=== PATIENT | male | born 1980 | race Native Hawaiian/Other Pacific Islander ===

== ENCOUNTER 2016-04-05 22:33 | Emergency (ER) | payer OTHER ==
[~2016-04-05] VITALS: Ht 175.3 cm; Wt 138.3 kg
[2016-04-06 04:25] VITALS: BP 150/100
== END 2016-04-06 04:45 | disposition left against medical advice (07) ==
LOC: ER 22:51
DX: M54.9 Dorsalgia, unspecified (principal); Z53.21 Procedure and treatment not carried out due to patient leaving prior to being seen by health care provider